=== PATIENT | male | born 1950 | race Caucasian/White ===

== ENCOUNTER 2018-09-07 15:23 | Emergency (ER) | payer OTHER, SELFPAY ==
[2018-09-07 15:43] VITALS: BP 166/80; PULSE 78; RESP 13; TEMP 36.6; O2SAT 99
--- NOTE | 2018-09-07 15:47 | ED.WOUNDLAC ---
HPI - Wound/Laceration <JEY García - Last Filed: 09/08/18 01:00> General Chief Complaint: Wound/Laceration Stated Complaint: laceration to right hand with a band saw Time Seen by Provider: 09/07/18 15:33 Source: patient and family Mode of arrival: ambulatory Limitations: no limitations History of Present Illness HPI narrative: This is a 68-year-old pleasant gentleman, previous smoker, has a history of hypertension and ankylosing spondylitis, presents with the daughter with right hand on the base of 2nd digit with deep laceration. He accidentally sustained this laceration while working on a table saw. His current taking Keflex for the last 7 days QID for another laceration he had it on left hand. Patient reports Right dominant hand, patient denies tingling, numbness, or weakness on affected hand. The patient came in with towel wrapped around the affected side giving direct pressure for bleeding. He denies any other injuries. Tdap was updated on 09/01/18. Related Data Home Medications Medication Instructions Recorded Confirmed hydrochlorothiazide 25 mg PO QDAY #0 08/05/12 09/01/18 adalimumab [Humira] 10 mg SC #0 09/13/15 09/01/18 cyanocobalamin (vitamin B-12) 1,000 mcg PO DAILY 06/02/18 09/01/18 1,000 mcg capsule metoprolol tartrate 50 mg tablet 50 mg PO BID 06/02/18 09/01/18 nabumetone 500 mg tablet 500 mg PO BID 06/02/18 09/01/18 pramipexole 0.5 mg tablet 0.5 mg PO DAILY 06/02/18 09/01/18 Respironics DreamStation BIPAP #1 ea 07/16/18 09/01/18 Previous Rx's Medication Instructions Recorded mupirocin 2 % topical ointment 1 applic TOP BID #22 gram 09/01/18 cephalexin 500 mg PO Q6H 10 Days #40 cap 09/07/18 Allergies Allergy/AdvReac Type Severity Reaction Status Date / Time Sulfa (Sulfonamide Allergy Verified 09/01/18 17:16 Antibiotics) Review of Systems <JEY García - Last Filed: 09/08/18 01:00> Review of Systems General: Denies fever, chills, fatigue, malaise, sweats. HEENT: Denies sinus pain, ear pain, sore throat, difficulty swallowing, dizziness. Respiratory: Denies dyspnea, cough, wheezing, hemoptysis, sputum. Cardiovascular: Denies chest pain, palpitations, orthopnea, edema. Gastrointestinal: Denies nausea, vomiting, abdominal pain, diarrhea, constipation, melena. : Denies dysuria, frequency, incontinence, hematuria, urinary retention. Musculoskeletal: Discomfort on affected laceration site. Denies weakness, joint pain. Skin: See HPI Neurologic: Denies weakness, headache, numbness, change in speech, confusion, seizures, incoordination. Psychiatric: No concerning psychosocial issues. 12-point review of systems is negative except for those stated above. PFSH <JEY García - Last Filed: 09/08/18 01:00> Medical History Atrial fibrillation with controlled ventricular rate (Chronic) Ankylosing spondylitis lumbar region (Chronic) Obstructive sleep apnea of adult (Chronic) Memory difficulties (Chronic) Fatigue due to sleep pattern disturbance (Chronic) Insomnia, unspecified (Chronic) Restless legs syndrome (RLS) (Chronic) Scoliosis of thoracolumbar spine (Chronic) Social History marital status: details: aleksandar Perez, lives in [place] household members: spouse lives independently: Yes caregiver/support person: No Smoking Status: Former smoker alcohol intake: current Social History marital status: details: aleksandar Perez lives in [place] household members: spouse lives independently: Yes caregiver/support person: No Smoking Status: Former smoker alcohol intake: current Exam <JEY García - Last Filed: 09/08/18 01:00> Narrative Exam Narrative: GEN: Alert, oriented x 3, well appearing and nourished, and in no acute distress. Head: Normal cephalic, atraumatic. No scalp or temporal tenderness, palpable mass or rash. EYES: Pupils are equal, round, and reactive to light and accommodation. Extraocular muscles are intact bilaterally. There is no subconjunctival hemorrhage, exudate and sclera non-icteric. Throat: Mucous membrane moist. Neck: Trachea in midline. No JVD, non-tender without lymphadenopathy. No masses or thyroid megaly. Supple, non-tender and meningeal signs. CARDIAC: No peripheral edema, cyanosis or pallor. Capillary refill is less than 2 seconds. RESPIRATORY: No cough, wheezes, rales, or rhonchi. No stridor, respiratory distress, increase work of breathing, or accessary muscle used. ABD: Abdomen non-distended, non-obesed. EXT: Full painless ROM of all extremities with no loss of sensation, strength, effusion or edema. SKIN: 5 cm linear deep laceration to the proximal and base of 2nd digit on R hand with active bleeding. Warm, dry, normal color for patient. No erythema, lesions or rash. NEUROLOGICAL: Alert and oriented to place, time and person. Sensation and motor function intact bilaterally. No facial droops, dysphasia. PSYCHIATRIC: Good judgement and reason, without hallucinations, abnormal affect or abnormal behaviors during the examination. Patient is not suicidal. Initial Vital Signs Initial Vital Signs: Vital Signs Temperature 98 F 09/07/18 15:43 Pulse Rate 78 09/07/18 15:43 Respiratory Rate 13 09/07/18 15:43 Blood Pressure 166/80 H 09/07/18 15:43 Pulse Oximetry 99 09/07/18 15:43 <Sariah Lopez DO - Last Filed: 09/12/18 08:03> Initial Vital Signs Initial Vital Signs: Vital Signs Temperature 98 F 09/07/18 15:43 Pulse Rate 78 09/07/18 15:43 Respiratory Rate 13 09/07/18 15:43 Blood Pressure 166/80 H 09/07/18 15:43 Pulse Oximetry 99 09/07/18 15:43 Procedures <JEY García - Last Filed: 09/08/18 01:00> Laceration Repair R 2nd proximal digit: Site: hand Side (If applicable): right Size (cm): 5 Description: linear Depth: simple, single layer Local Anesthetic: lidocaine 1% and with bicarb Amount of anesthesia used (mL): 6 Pre-repair: wound explored, irrigated extensively and deep structures intact Skin layer closed with: nylon Size (cm): 4-0 Number of sutures: 12 Technique: simple, interrupted Orthopedic Splinting/Casting R 2nd proximal digit: Side: right Upper Extremity Injury Location: finger Upper Extremity Immobilizer: aluminum form splint Post splinting neuro exam: intact Post splinting vascular exam: intact Placed by: Nursing Course <JEY García - Last Filed: 09/08/18 01:00> Orders Ordered: Discontinued Medications Cefazolin Sodium/Dextrose (Ancef) 1 gm in 50 mls @ 200 mls/hr IV NOW ONE Stop: 09/07/18 17:16 Last Infusion: 09/07/18 17:27 Dose: 0 mls/hr Admin: 09/07/18 17:11 Dose: 200 mls/hr Vital Signs - 8 hr 09/07/18 17:46 Pulse Rate 68 Respiratory Rate 15 Blood Pressure [Left Arm] 162/86 H Pulse Oximetry 100 <Sariah Lopez DO - Last Filed: 09/12/18 08:03> Orders Ordered: Discontinued Medications Cefazolin Sodium/Dextrose (Ancef) 1 gm in 50 mls @ 200 mls/hr IV NOW ONE Stop: 09/07/18 17:16 Last Infusion: 09/07/18 17:27 Dose: 0 mls/hr Admin: 09/07/18 17:11 Dose: 200 mls/hr Vital Signs - 8 hr 09/07/18 17:46 Pulse Rate 68 Respiratory Rate 15 Blood Pressure [Left Arm] 162/86 H Pulse Oximetry 100 MDM - Wound/Laceration <JEY García - Last Filed: 09/08/18 01:00> Differential Diagnosis Differential diagnosis: Likely laceration and other (fracture) Medical Records Attestation: I reviewed the patient's medical records. Imaging Data XR-R 2nd finger: Radiologist's impression: [address] [address] XRay Report Signed Patient: Jacoby Lee R#: [id number] : 9Acct:[id number] Age/Sex: 68 / MDate of Service: 09/07/18 Loc: ED Accession Number: [id number] Procedure: XR finger RT min 2V Ordering Provider: William Benites PROCEDURE: XR FINGER RT MIN 2V INDICATIONS: deep laceration on base of finger table saw TECHNIQUE: AP hand, 2 views of the right second finger(s) acquired. COMPARISON: None. FINDINGS: Bones: A minimally displaced fracture is present through the diaphysis of the proximal phalanx of the right second digit. Soft tissues: A soft tissue laceration overlies the proximal phalangeal fracture. IMPRESSION: Laceration/fracture of the proximal phalanx of the right second digit. Dictated by: Manuela Pendleton M.D. on 09/07/2018 at 15:07 Approved by: Manuela Pendleton M.D. on 09/07/2018 at 15:08 [facility] Narrative Medical decision making narrative: This is a 65-year-old pleasant gentleman came in with a deep laceration to his proximal 2nd digit of right hand. He sustained injury using a table saw. He was able to move all his fingers against resistance. X-ray of affected finger was obtained and it indicates a minimally displaced fracture is present through the diaphysis of the proximal phalanx of the right second digit. The patient has soaked his affected hand into water mixed with Hibiclens prior suture repair. The worship was repaired by simple interrupted 12 sutures with nylon 4-0 after locally anesthetized with 1% lidocaine with bicarb. The laceration was irrigated very well with normal saline 0.9% of total 500 mL and with copious pressure. The laceration was restarted bleeding and direct pressure was applied and suture was then placed. The patient tolerated well the procedure. The wound care was done by nursing staff. Patient was given 1 g of Ancef IV secondary to open fracture. Dr. Tiwari was consulted over the phone. Patient is placed on aluminum foam splint as Dr. Tiwari instructed. The patient was prescribed with additional 10 day course of Keflex 500 mg q.i.d. and to follow with the [facility] orthopedist this coming week. We discussed red flag symptoms for infection such as increasing pain/redness/warmth/purulent discharge/fever, chills, chest pain difficulty breathing. Plan of treatments were discussed with the patient and daughter and no further questions were expressed by them. Suture will be removed in 7-10 days unless indicated otherwise by orthopedist. Discharge Plan Departure Patient Disposition: Home Clinical Impression: Open fracture, Laceration Discharge Date/Time: 09/07/18 18:14 Interventions: ED Discharge Assessment Last Done: 09/07/18 18:13 Instructions: DI for Laceration Repair, DI for Open Fracture Activity Restrictions/Additional Instructions: You have been diagnosed with [open fracture to base of R index finger]. What to do: *Take your medications as directed and complete another course of Keflex with this new injury. Your Rx has been faxed to your pharmacy. *Follow up with your primary care provider/Orthopedist in 2-3 days, call for an appointment. Let them know you were seen in the ED and that we asked you to be seen in follow up. P Please keep the wound clean dry and intact for next 24 hours. After then, he could open the dressing, wash with soap and water gently and pat dry with paper towel. Use [id number] antibiotic ointment and dressed with Band-Aid. Please use her splint on affected finger to protect the sutures and fracture. Please do not soak her hand in water until suture has removed. *Return to ED if you have any new, worsening, or concerning symptoms, such as [fever, chills, nausea, vomiting, increasing redness/pain/warmth, pus like discharge or chest pain, breathing difficulty, any concerning symptoms]. Prescriptions: New cephalexin 500 mg capsule 500 mg PO Q6H 10 Days Qty: 40 RF: 0 No Action cyanocobalamin (vitamin B-12) 1,000 mcg capsule 1,000 mcg PO DAILY RF: 0 metoprolol tartrate 50 mg tablet 50 mg PO BID RF: 0 nabumetone 500 mg tablet 500 mg PO BID RF: 0 pramipexole 0.5 mg tablet 0.5 mg PO DAILY RF: 0 mupirocin 2 % ointment 1 applic TOP BID Qty: 22 RF: 0 hydrochlorothiazide 25 MG tablet 25 mg PO QDAY Qty: 0 RF: 0 adalimumab [Humira] 10 MG/0.2 ML syringe kit 10 mg SC Qty: 0 RF: 0 Respironics DreamStation BIPAP Qty: 1 RF: 0 Referrals: [facility] [Outside] Toni Arroyo MD [Primary Care Provider] - <Sariah Lopez DO - Last Filed: 09/12/18 08:03> Cosign ED Attending Madina Attestation: I was immediately available in the department for consultation. Documentation has been reviewed. I agree with assessment and plan.
--- NOTE | 2018-09-07 15:52 | DI.RAD.S_ITS ---
PROCEDURE: XR FINGER RT MIN 2V INDICATIONS: deep laceration on base of finger table saw TECHNIQUE: AP hand, 2 views of the right second finger(s) acquired. COMPARISON: None. FINDINGS: Bones: A minimally displaced fracture is present through the diaphysis of the proximal phalanx of the right second digit. Soft tissues: A soft tissue laceration overlies the proximal phalangeal fracture. IMPRESSION: Laceration/fracture of the proximal phalanx of the right second digit. Dictated by: Manuela Pendleton M.D. on 09/07/2018 at 15:07 Approved by: Manuela Pendleton M.D. on 09/07/2018 at 15:08
[2018-09-07] MEDS: CEFAZOLIN 1 GM/50 ML FROZ.PIGGY IV (17:11)
[2018-09-07 17:46] VITALS: BP 162/86; PULSE 68; RESP 15; O2SAT 100
== END 2018-09-07 18:14 | disposition home or self-care (01) ==
PROVIDERS: Emergency Provider Nurse Practitioner Family; PCP Family Medicine
DX: S62.610B Displaced fracture of proximal phalanx of right index finger, initial encounter for open fracture (principal); W31.2XXA Contact with powered woodworking and forming machines, initial encounter
CPT/HCPCS: 12002; 29130; 73140; 96365; 99284

== ENCOUNTER 2021-04-01 14:30 | Emergency (ER) | payer OTHER, SELFPAY ==
[2021-04-01] VITALS (9 sets, daily range): BP systolic 167–188; BP diastolic 84–122; PULSE 56–63; RESP 14–21; TEMP 36.4; O2SAT 98–100; BMI 24.0
--- NOTE | 2021-04-01 14:52 | DI.RAD.S_ITS ---
PROCEDURE: XR CHEST 1V INDICATIONS: Possible stroke TECHNIQUE: One view of the chest was acquired. COMPARISON: [facility], CT, CT HEAD/BRAIN WO CON, 04/01/2021, 14:56. [facility], CR, XR CHEST 2 VIEWS, 08/05/2019, 14:14. [facility], CR, CHEST 1 VIEW, 09/13/2015, 11:40. [facility], CR, XR CHEST 2 VIEWS, 07/17/2017, 10:20. FINDINGS: Surgical changes and devices: None. Lungs and pleura: Low lung volumes are noted. This causes a crowded appearance to the lung markings and limits evaluation. Mild interstitial prominence can be seen. On this semiupright portable chest examination, no large pneumothorax or large pleural effusions are seen. No focal infiltrates are seen. Mediastinum: Mediastinal contours appear normal. Heart size is normal. Atherosclerotic calcification of the aortic arch is noted. Bones and chest wall: No suspicious bony lesions. Overlying soft tissues appear unremarkable. IMPRESSION: Limited chest study demonstrating low lung volumes. Mild interstitial prominence is seen, which may related to artifact or mild pulmonary edema. If clinically appropriate, a short-term followup chest series (with PA and lateral views) performed in deep inspiration is suggested for further evaluation. Dictated by: Keon Faustin M.D. on 04/01/2021 at 14:14 Approved by: Keon Faustin M.D. on 04/01/2021 at 14:15
--- NOTE | 2021-04-01 14:53 | DI.CT.S_ITS ---
PROCEDURE: CT HEAD/BRAIN WO CON INDICATIONS: double vision, dizzy, falls TECHNIQUE: Noncontrast 4.5 mm thick angled axial sections acquired from the foramen magnum to the vertex, with coronal and sagittal reformats. For radiation dose reduction, the following was used: automated exposure control, adjustment of mA and/or kV according to patient size. COMPARISON: None. FINDINGS: Image quality: Excellent. CSF spaces: Basal cisterns are patent. Prominent CSF density in left posterior fossa is seen which may represent arachnoid cyst. No extra-axial hemorrhage. The ventricles are symmetric in size and shape. Brain: No intracranial bleeds or masses. There is cerebral volume loss for age, with resultant ventricular and sulcal prominence. There are periventricular and deep white matter chronic small vessel ischemic changes. There is intracranial internal carotid artery atherosclerosis. Skull and face: Calvarium and visualized facial bones appear intact, without suspicious lesions. Sinuses: Visualized sinuses and mastoids are clear. IMPRESSION: 1. No CT evidence of acute intracranial abnormalities. 2. Age related atrophy and mild white matter chronic small vessel ischemic changes. 3. Possible arachnoid cyst in left posterior fossa. Dictated by: Shay Jacobs M.D. on 04/01/2021 at 15:08 Approved by: Shay Jacobs M.D. on 04/01/2021 at 15:15
[2021-04-01 15:29] LABS: Add Manual Diff / Slide Review NO; Basophils Absolute Auto 0 /uL (0-100); Basophils Percent Auto 0.6 % (0-2); Eosinophils Absolute Auto 100 /uL (0-450); Eosinophils Percent Auto 2.1 % (2-4); Hematocrit 43.9 % (41-53); Hemoglobin 15.3 g/dL (13.5-17.5); INR 1.1 (0.9-1.3); Lymphocytes Absolute Auto 1200 /uL (1100-4500); Mean Corpuscular HGB Conc 34.9 % (30-36); Mean Corpuscular Hemoglobin 32.4 PG (26-34); Mean Corpuscular Volume 92.7 fL (80-100); Monocytes Absolute Auto 500 /uL (0-900); Monocytes Percent Auto 8.1 % (3-14); Neutrophils Absolute Auto 4200 /uL (1500-7000); Neutrophils Percent Auto 69.2 % (50-75); Platelet Count 189 X10^3/uL (150-400); Prothrombin Time 11.9 SECONDS (10.1-12.7); Red Blood Cell Count 4.73 X10^6/uL (4.5-5.9); Red Cell Distribution Width 12.8 % (11.6-14.8); White Blood Cell Count 6.1 X10^3/uL (4.5-11.0)
[2021-04-01 15:31] LABS: PTT Partial Thromboplastin Tim 61 SECONDS (26.4-36.2)
[2021-04-01 15:33] LABS: Alanine Aminotransferase 27 IU/L (<50); Albumin 4.5 g/dL (3.5-5.0); Albumin Globulin Ratio 1.4 (1.0-2.8); Alkaline Phosphatase 87 U/L (38-126); Aspartate Aminotransferase 39 IU/L (17-59); BUN Creatinine Ratio 27.2 (6-22); Bilirubin Total 0.6 mg/dL (0.2-1.3); Blood Urea Nitrogen 25 mg/dL (9-20); Calcium 9.5 mg/dL (8.4-10.2); Carbon Dioxide 33 mmol/L (22-32); Chloride 104 mmol/L (98-107); Creatine Kinase 60 U/L (55-170); Estimated Glomerular Filt Rate > 60.0 mL/min (>60); Globulin 3.2 g/dL (1.7-4.1); Glucose 96 mg/dL (80-110); HEMOLYSIS 31 (0-50); Potassium 3.9 mmol/L (3.4-5.1); Sodium 141 mmol/L (137-145); Total Protein 7.7 g/dL (6.3-8.2)
[2021-04-01 15:45] LABS: Troponin I < 0.012 ng/mL (0.01-0.034)
[2021-04-01 16:31] LABS: COVID19 -Nasal RAPID Negative (Negative)
--- NOTE | 2021-04-01 17:18 | ED.NEUROSD ---
HPI - Neuro Symptoms/Deficit General Chief Complaint: Neuro Symptoms/Deficit Stated Complaint: Stroke Symtoms, Sent From Eye Dr Time Seen by Provider: 04/01/21 15:48 Source: patient and family Mode of arrival: Ambulatory History of Present Illness HPI Narrative: The patient arrives from Ophthalmology due to a documented visual field cut. The patient is under care for glaucoma, this was a routine visit. He is under the care of neurology for dementia. He has no history of CVA. He did have an episode of double vision about a week ago. He had an episode of dizziness yesterday. Is possible is current medications may be associated dizziness. He has no perceivable visual changes. He has no speech changes. His no focal numbness or weakness. He denies recent illness. He has no palpitations. Medical records indicate a history of PAF. Denies chest discomfort. He ambulates without difficulty. On Anticoagulants: No Related Data Home Medications Medication Instructions Recorded Confirmed hydrochlorothiazide 25 mg tablet 25 mg PO QDAY #0 08/05/12 09/09/20 adalimumab 10 mg/0.2 mL 10 mg SC #0 09/13/15 09/09/20 subcutaneous syringe kit (Humira) cyanocobalamin (vitamin B-12) 1,000 mcg PO DAILY 06/02/18 09/09/20 1,000 mcg capsule pramipexole 0.5 mg tablet 0.5 mg PO DAILY 06/02/18 09/09/20 Respironics DreamStation BIPAP #1 ea 07/16/18 09/09/20 donepezil 5 mg tablet 5 mg PO DAILY 09/09/20 09/09/20 folic acid 0.8 mg capsule 0.8 mg PO DAILY 09/09/20 09/09/20 latanoprost 0.005 % eye drops drp EYE-BOTH 09/09/20 09/09/20 metoprolol tartrate 50 mg tablet 25 mg PO BID tab 09/09/20 09/09/20 sertraline 50 mg tablet 50 mg PO DAILY 09/09/20 09/09/20 vitamin E 1,000 unit capsule 2,000 unit PO DAILY 09/09/20 09/09/20 Allergies Allergy/AdvReac Type Severity Reaction Status Date / Time Sulfa (Sulfonamide Allergy Verified 04/01/21 14:37 Antibiotics) Review of Systems Review of Systems ROS Unobtainable: All systems reviewed & are unremarkable except as noted in HPI and below Constitutional Constitutional: Reports as per HPI, Denies body ache(s), Denies chills, Denies fatigue, Denies fever(s), Denies frequent falls, Denies headache(s) and Denies weakness Eyes Eyes: Denies change in vision and Denies loss of vision Comments: Visual field cut detected by Ophthalmology. ENT Ears, Nose, Mouth, and Throat: Denies vertigo, Reports dizziness, Denies headache(s), Denies sinus pressure and Denies sore throat Cardiovascular Cardiovascular: Denies chest pain, Denies syncope, Denies rapid heart rate, Denies irregular heart rhythm and Denies dyspnea Respiratory Respiratory: Denies cough and Denies dyspnea Gastrointestinal Gastrointestinal: Denies abdominal pain Musculoskeletal Musculoskeletal: Denies arthralgias, Denies back pain, Denies joint swelling, Denies numbness and Denies tingling Integumentary/Breasts Skin/Breast: Denies rash Neurologic Neurologic: Denies confusion, Denies vertigo, Reports dizziness, Denies syncope, Denies frequent falls, Denies headache(s), Denies loss of vision, Reports memory loss, Denies numbness, Denies tingling and Denies weakness Psychiatric Psychiatric: Denies confusion, Denies depression and Reports memory loss Endocrine Endocrine: Denies fatigue Hematologic/Lymphatic On Anticoagulants: No Patient History Medical History (Updated 04/01/21 @ 17:44 by Lamonte Mendoza MD) Ankylosing spondylitis lumbar region Cognitive impairment (~2019) Fatigue due to sleep pattern disturbance Glaucoma Insomnia, unspecified Obstructive sleep apnea of adult Paroxysmal atrial fibrillation Restless legs syndrome (RLS) Social History marital status: details: aleksandar Perez, lives in [place] household members: spouse lives independently: Yes caregiver/support person: No housing: house education level: college (BA, [employer]) Previous occupational history: Taught IA in high schools Smoking Status: Former smoker alcohol intake: current (1 non-alcoholic beer daily) substance use type: does not use Smoking Status: Former smoker Substance Use Type: does not use Exam Initial Vital Signs Initial Vital Signs: Vital Signs Temperature 97.5 F L 04/01/21 14:37 Pulse Rate 57 L 04/01/21 14:37 Respiratory Rate 18 04/01/21 14:37 Blood Pressure 185/85 H 04/01/21 14:37 Pulse Oximetry 99 04/01/21 14:37 Const General: cooperative, comfortable, well developed, well groomed and No acute distress HENOK Head: normocephalic and atraumatic Face and sinus: normal facial exam Mouth: oropharynx normal Eyes Other: Pupils are currently dilated due to the recent ophthalmology exam. EOMI. Neck Neck: No JVD and other (No bruit) Resp Auscultation: clear to auscultation bilaterally Cardio Rate: regular rate Rhythm: regular rhythm Heart Sounds: S1 normal, S2 normal and no murmurs GI Inspection: normal to inspection Palpation: soft and No tender Back/Spine/Pelvis Back: normal to inspection Skin General: no rashes or lesions noted Neuro General: patient alert, patient awake and no focal motor deficits Cranial Nerves: CN's II-XI intact bilaterally Speech: speech normal Gait: normal gait Motor: muscle tone normal throughout Sensory Exam: no sensory deficits noted Coordination: [id number] test normal and Romberg test normal Course Course Course Narrative: No evidence of acute stroke on physical exam, or on CT. I have started him on aspirin. He should continue his other medications. He has already seen a neurologist for his dementia. I advised follow-up with his neurologist. Orders Ordered: ED Orders 04/01/21 14:52 XR chest 1V Stat Urine Drug Screen, Rapid Stat 04/01/21 14:53 CT head/brain wo con Stat 04/01/21 14:57 COVID19 -Nasal swab/Pre-Proc Stat 04/01/21 15:08 EKG-12 Lead Stat 04/01/21 15:10 Complete Blood Count AUTO DIFF Stat Comprehensive Metabolic Panel Stat Partial Thromboplastin Time Stat Prothrombin Time INR Stat Troponin & CK Cardiac Panel Stat Vital Signs Vital signs: Vital Signs - 8 hr 04/01/21 14:37 Temperature 97.5 F L Pulse Rate 57 L Respiratory Rate 18 Blood Pressure 185/85 H Pulse Oximetry 99 MDM - Neuro Symptoms/Deficit Lab Data Result diagrams: 04/01/21 15:10 04/01/21 15:10 Labs: Lab Results 04/01/21 04/01/21 04/01/21 Range/Units 14:57 15:10 15:10 WBC 6.1 (4.5-11.0) X10^3/uL RBC 4.73 (4.5-5.9) X10^6/uL Hgb 15.3 (13.5-17.5) g/dL Hct 43.9 (41-53) % MCV 92.7 (80-100) fL MCH 32.4 (26-34) PG MCHC 34.9 (30-36) % RDW 12.8 (11.6-14.8) % Plt Count 189 (150-400) X10^3/uL Neut % (Auto) 69.2 (50-75) % Lymph % (Auto) 20.0 L (25-40) % [place] % (Auto) 8.1 (3-14) % Eos % (Auto) 2.1 (2-4) % Baso % (Auto) 0.6 (0-2) % Neut # (Auto) 4200 (0865-3808) /uL Lymph # (Auto) 1200 (8303-2874) /uL [place] # (Auto) 500 (0-900) /uL Eos # (Auto) 100 (0-450) /uL Baso # (Auto) 0 (0-100) /uL PT 11.9 (10.1-12.7) SECONDS INR 1.1 (0.9-1.3) APTT 61 H (26.4-36.2) SECONDS Sodium (137-145) mmol/L Potassium (3.4-5.1) mmol/L Chloride (98-107) mmol/L Carbon Dioxide (22-32) mmol/L BUN (9-20) mg/dL Creatinine (0.66-1.25) mg/dL Estimated GFR (>60) mL/min BUN/Creatinine Ratio (6-22) Glucose (80-110) mg/dL Calcium (8.4-10.2) mg/dL Total Bilirubin (0.2-1.3) mg/dL AST (17-59) IU/L ALT (<50) IU/L Alkaline Phosphatase (38-126) U/L Total Creatine Kinase (55-170) U/L CK-MB (CK-2) CK-MB (CK-2) Rel Index Troponin I (0.01-0.034) ng/mL Total Protein (6.3-8.2) g/dL Albumin (3.5-5.0) g/dL Globulin (1.7-4.1) g/dL Albumin/Globulin Ratio (1.0-2.8) SARS-CoV-2 (PCR) Negative (Negative) 04/01/21 Range/Units 15:10 WBC (4.5-11.0) X10^3/uL RBC (4.5-5.9) X10^6/uL Hgb (13.5-17.5) g/dL Hct (41-53) % MCV (80-100) fL MCH (26-34) PG MCHC (30-36) % RDW (11.6-14.8) % Plt Count (150-400) X10^3/uL Neut % (Auto) (50-75) % Lymph % (Auto) (25-40) % [place] % (Auto) (3-14) % Eos % (Auto) (2-4) % Baso % (Auto) (0-2) % Neut # (Auto) (9187-5677) /uL Lymph # (Auto) (3246-1499) /uL [place] # (Auto) (0-900) /uL Eos # (Auto) (0-450) /uL Baso # (Auto) (0-100) /uL PT (10.1-12.7) SECONDS INR (0.9-1.3) APTT (26.4-36.2) SECONDS Sodium 141 (137-145) mmol/L Potassium 3.9 (3.4-5.1) mmol/L Chloride 104 (98-107) mmol/L Carbon Dioxide 33 H (22-32) mmol/L BUN 25 H (9-20) mg/dL Creatinine 0.92 (0.66-1.25) mg/dL Estimated GFR > 60.0 (>60) mL/min BUN/Creatinine Ratio 27.2 H (6-22) Glucose 96 (80-110) mg/dL Calcium 9.5 (8.4-10.2) mg/dL Total Bilirubin 0.6 (0.2-1.3) mg/dL AST 39 (17-59) IU/L ALT 27 (<50) IU/L Alkaline Phosphatase 87 (38-126) U/L Total Creatine Kinase 60 (55-170) U/L CK-MB (CK-2) TNP CK-MB (CK-2) Rel Index TNP Troponin I < 0.012 (0.01-0.034) ng/mL Total Protein 7.7 (6.3-8.2) g/dL Albumin 4.5 (3.5-5.0) g/dL Globulin 3.2 (1.7-4.1) g/dL Albumin/Globulin Ratio 1.4 (1.0-2.8) SARS-CoV-2 (PCR) (Negative) Imaging Data CT scan - head: Radiologist's Impression: 1. No CT evidence of acute intracranial abnormalities.? 2. Age related atrophy and mild white matter chronic small vessel ischemic changes. 3. Possible arachnoid cyst in left posterior fossa. Chest x-ray: Radiologist's Impression: Mild interstitial prominence, no acute findings. ECG Data Attestation: I personally reviewed and interpreted this ECG as follows: (Sinus bradycardia rate 56 beats per minute. Normal intervals. No ectopy. No acute ST T wave changes.) Discharge Plan Departure Prescriptions: No Action cyanocobalamin (vitamin B-12) 1,000 mcg capsule 1,000 mcg PO DAILY 0RF pramipexole 0.5 mg tablet 0.5 mg PO DAILY 0RF metoprolol tartrate 50 mg tablet 25 mg PO BID 0RF hydrochlorothiazide 25 MG tablet 25 mg PO QDAY Qty: 0 0RF adalimumab [Humira] 10 MG/0.2 ML syringe kit 10 mg SC Qty: 0 0RF (DME) Respironics DreamStation BIPAP Qty: 1 0RF Dose Instruction: As directed Label Comments: Pressure: IPAP 20 EPAP 12 DME: [employer] Rx Instructions: As directed folic acid 0.8 mg capsule 0.8 mg PO DAILY 0RF latanoprost 0.005 % drops EYE-BOTH 0RF donepezil 5 mg tablet 5 mg PO DAILY 0RF sertraline 50 mg tablet 50 mg PO DAILY 0RF vitamin E 1,000 unit capsule 2,000 unit PO DAILY 0RF Referrals: Shelly Arroyo MD [Primary Care Provider] -
[2021-04-01] MEDS: ASPIRIN 81 MG CHEW TAB 324 MG PO (17:41)
[2021-04-01 18:10] LABS: UR Morphine/Opiate cutoff 300 Negative (Negative); Ur Creatinine Normal (Normal); Ur Specific Gravity Normal (Normal); Urine Amphetamines Negative (Negative); Urine Barbiturates Negative (Negative); Urine Benzodiazepines Negative (Negative); Urine Cocaine Negative (Negative); Urine MDMA Negative (Negative); Urine Methadone Negative (Negative); Urine Methamphetamines Negative (Negative); Urine Oxycodone Negative (Negative); Urine Phencyclidine Negative (Negative); Urine Tetrahydrocannabinol Negative (Negative); Urine Tricyclic Antidepressant Negative (Negative); Urine pH Normal (Normal)
== END 2021-04-01 17:50 | disposition home or self-care (01) ==
PROVIDERS: Emergency Provider Emergency Medicine; PCP Family Medicine
DX: H53.40 Unspecified visual field defects (principal); H40.9 Unspecified glaucoma; F03.90 Unspecified dementia, unspecified severity, without behavioral disturbance, psychotic disturbance, mood disturbance, and anxiety; R00.1 Bradycardia, unspecified; Z20.822 Contact with and (suspected) exposure to COVID-19
CPT/HCPCS: 36415; 51798; 70450; 71045; 80053; 80305; 81003; 82550; 84484; 85025; 85610; 85730; 87635; 93005; 93010; 99284; C9803

== ENCOUNTER → 2021-04-21 09:39 | Outpatient (CLI) | payer OTHER, SELFPAY ==
--- NOTE | 2021-04-21 09:40 | DI.MRI.S_ITS ---
PROCEDURE: MR HEAD/BRAIN WO CON INDICATIONS: Diplopia TECHNIQUE: Non-contrast axial T1 spin echo, axial T2 fast spin echo, sagittal and axial FLAIR, coronal T2 fast spin echo, axial gradient echo, axial diffusion and ADC through the brain. COMPARISON: [facility], CT, CT HEAD/BRAIN WO CON, 04/01/2021, 14:56. FINDINGS: Image quality: Excellent. CSF spaces: Ventricles appear symmetric in size and shape. Basal cisterns are patent. Left posterior fossa arachnoid cyst is stable compared to prior CT scan. Brain: No intracranial bleeds or mass effects. There is mild cerebral volume loss for age. There are [id number] periventricular and deep white matter chronic small vessel ischemic changes. Brainstem appears normal. Diffusion-weighted images show no acute ischemic insults. No chronic ischemic insults. Normal intravascular flow voids are present. Skull and face: Calvarial bone marrow is normal in signal. Orbits are normal. Sinuses: Sinuses and mastoids are clear. IMPRESSION: 1. No acute intracranial disease process. 2. No areas of acute or chronic infarction. 3. No abnormal intracranial mass or mass effect. 4. Mild, diffuse cerebral volume loss. 5. [id number] periventricular and subcortical white matter chronic microvascular ischemic changes. Dictated by: Padmini Stuart MD, PhD on 04/21/2021 at 10:52 Approved by: Padmini Stuart MD, PhD on 04/21/2021 at 10:55
== END ==
PROVIDERS: PCP Family Medicine; Referring Provider Psychiatry & Neurology Neurology; Visit Provider Psychiatry & Neurology Neurology
DX: H53.2 Diplopia (principal)
CPT/HCPCS: 70551

== ENCOUNTER 2021-12-07 11:53 | Day surgery (SDC) | payer OTHER, SELFPAY ==
[2021-12-07] VITALS (11 sets, daily range): BP systolic 139–215; BP diastolic 71–99; PULSE 54–69; RESP 11–21; TEMP 36.2–37; O2SAT 93–99; BMI 25.1
--- NOTE | 2021-12-07 12:05 | DI.RAD.S_ITS ---
PROCEDURE: XR HAND LT MIN 3V INDICATIONS: saw vs hand amputation index TECHNIQUE: 3 views of the hand(s) acquired. COMPARISON: None. FINDINGS: Bones: Traumatic amputation of the 2nd finger at the proximal phalanx shaft. Traumatic amputation of the thumb at the mid distal phalanx. Suspected minimally displaced fracture of the distal tuft of the 3rd finger. The 4th and 5th fingers are not well seen. Suspected traumatic amputation of the 5th finger at the distal phalanx. Soft tissues: No suspicious soft tissue calcifications. IMPRESSION: Traumatic amputation and injury of multiple fingers as above. Dictated by: Se Younger M.D. on 12/07/2021 at 13:35 Approved by: Se Younger M.D. on 12/07/2021 at 13:40
--- NOTE | 2021-12-07 12:17 | PC.NURSE ---
1205: Pt with deep lacerations on L hand, partial amputation of L thumb and L index finger with deep lacerations through adipose of 3-5th digits. Pt with pulsating bleeding and CAT TQ applied at 1205 which stabilized bleeding to dress rest of hand. Dr Trejo, Ortho aware and will be in dept for assessment. IV obtained and orders to be carried out per APR 1219: TQ removed and bleeding controlled at this time.
[2021-12-07 12:18] LABS: Add Manual Diff / Slide Review NO; Basophils Absolute Auto 100 /uL (0-100); Basophils Percent Auto 0.9 % (0-2); Eosinophils Absolute Auto 100 /uL (0-450); Eosinophils Percent Auto 2.4 % (2-4); Hematocrit 46.7 % (41-53); Hemoglobin 16.4 g/dL (13.5-17.5); Lymphocytes Absolute Auto 1500 /uL (1100-4500); Lymphocytes Percent Auto 24.4 % (25-40); Mean Corpuscular HGB Conc 35.1 % (30-36); Mean Corpuscular Hemoglobin 32.3 PG (26-34); Mean Corpuscular Volume 92.2 fL (80-100); Monocytes Absolute Auto 500 /uL (0-900); Monocytes Percent Auto 8.9 % (3-14); Neutrophils Absolute Auto 3900 /uL (1500-7000); Neutrophils Percent Auto 63.4 % (50-75); Platelet Count 193 X10^3/uL (150-400); Red Blood Cell Count 5.07 X10^6/uL (4.5-5.9); Red Cell Distribution Width 13.5 % (11.6-14.8); White Blood Cell Count 6.1 X10^3/uL (4.5-11.0)
--- NOTE | 2021-12-07 12:20 | PC.NURSE ---
tourniquet removed by dr tran at 1220.
[2021-12-07 12:31] LABS: Alanine Aminotransferase 23 IU/L (<50); Albumin 4.3 g/dL (3.5-5.0); Albumin Globulin Ratio 1.3 (1.0-2.8); Alkaline Phosphatase 86 U/L (38-126); Aspartate Aminotransferase 27 IU/L (17-59); Bilirubin Total 0.7 mg/dL (0.2-1.3); Blood Urea Nitrogen 17 mg/dL (9-20); Calcium 8.8 mg/dL (8.4-10.2); Carbon Dioxide 26 mmol/L (22-32); Chloride 104 mmol/L (98-107); Estimated Glomerular Filt Rate > 60 mL/min (>60); Globulin 3.4 g/dL (1.7-4.1); Glucose 113 mg/dL (80-110); HEMOLYSIS 24 (0-50); Sodium 140 mmol/L (137-145); Total Protein 7.7 g/dL (6.3-8.2)
[2021-12-07] MEDS: CEFAZOLIN VIAL 1 GM in SODIUM CHLORIDE 0.9% 100 ML IV (12:31)
[2021-12-07] MEDS: TET,DIPH,PERTUSS(ACELL),VAC/PF 0.5 ML SYRINGE IM (12:32)
[2021-12-07] MEDS: HYDROMORPHONE 0.5 MG INJ IV ×2 (12:32→15:25)
[2021-12-07 12:38] LABS: COVID19 -Nasal RAPID Negative (Negative)
--- NOTE | 2021-12-07 13:56 | ED_ITS ---
"HPI - Extremity Injury (Upper) General Chief Complaint: Trauma Stated Complaint: Cut self on saw Time Seen by Provider: 12/07/21 12:05 Source: patient Mode of arrival: Ambulatory History of Present Illness HPI narrative: Patient is a 71-year-old male with mild dementia presenting today with left hand injury. He was using a table saw he amputated his left index finger he has multiple lacerations on the thumb and pinky as. No blood thinners. No other injury. He is right-hand dominant. Related Data Home Medications Medication Instructions Recorded Confirmed hydrochlorothiazide 25 mg tablet 25 mg PO QDAY ##0 08/05/12 12/07/21 adalimumab 10 mg/0.2 mL 10 mg SC ##0 09/13/15 06/06/21 subcutaneous syringe kit ([employer]) cyanocobalamin (vitamin B-12) 1,000 mcg PO DAILY 06/02/18 12/07/21 1,000 mcg capsule donepezil 5 mg tablet 5 mg PO DAILY 09/09/20 12/07/21 folic acid 0.8 mg capsule 0.8 mg PO DAILY 09/09/20 12/07/21 latanoprost 0.005 % eye drops drp EYE-BOTH 09/09/20 06/06/21 metoprolol tartrate 50 mg tablet 25 mg PO BID 09/09/20 12/07/21 sertraline 50 mg tablet 50 mg PO DAILY 09/09/20 12/07/21 vitamin E 670 mg (1,000 unit) 2,000 unit PO DAILY 09/09/20 12/07/21 capsule memantine 5 mg tablet 5 mg PO BID 06/06/21 12/07/21 ropinirole 0.5 mg tablet 0.5 mg PO BEDTIME 06/06/21 12/07/21 ResMed AirCurve 1012/06/21 Previous Rx's Medication Instructions Recorded cephalexin 500 mg capsule 500 mg PO Q8H #30 caps 12/07/21 cephalexin 500 mg capsule 500 mg PO TID #30 caps 12/07/21 oxycodone 5 mg tablet 5 mg PO Q6H PRN pain #40 tabs 12/07/21 oxycodone 5 mg tablet 5 mg PO Q6H PRN pain (scale score 12/07/21 7-10) #40 tabs Allergies Allergy/AdvReac Type Severity Reaction Status Date / Time Sulfa (Sulfonamide Allergy Verified 12/07/21 16:21 Antibiotics) Review of Systems Review of Systems Narrative: GENERAL: Denies chills,fever HEENT: Denies throat pain RESPIRATORY: Denies dyspnea, cough, wheezing CARDIOVASCULAR: Denies chest pain, palpitations GASTROINTESTINAL: Denies nausea, vomiting MUSCULOSKELETAL: Denies extremity pain, injury SKIN: See HPI NEUROLOGIC: Denies weakness, dizziness, headache, numbness 8 point review of systems is negative except for those stated above and HPI Patient History Medical History Ankylosing spondylitis lumbar region Cognitive impairment (~2019) Fatigue due to sleep pattern disturbance Glaucoma Insomnia, unspecified Obstructive sleep apnea of adult Paroxysmal atrial fibrillation Restless legs syndrome (RLS) Social History marital status: details: aleksandar Perez, lives in [place] household members: spouse lives independently: Yes caregiver/support person: No housing: house education level: college (BA, [employer]) 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 Smoking Status: Former smoker alcohol intake: current substance use type: does not use Smoking Status: Former smoker Substance Use Type: does not use Exam Initial Vital Signs Initial Vital Signs: Vital Signs Temperature 98.6 F 12/07/21 12:05 Pulse Rate 54 L 12/07/21 12:05 Respiratory Rate 16 12/07/21 12:05 Blood Pressure 215/97 H 12/07/21 12:05 Pulse Oximetry 99 12/07/21 12:05 Oxygen Delivery Method 12/07/21 12:05 GENERAL: Alert pleasant 71-year-old male CARDIOVASCULAR: peripheral pulses in tact, cap refill <2 sec RESPIRATORY: No respiratory distress, speaks in full sentences without difficulty EXTREMITIES: Normal range of motion, no clubbing or edema. Neurovascularly intact NEUROLOGICAL: Cranial nerves II through XII grossly intact. Normal gait and speech. SKIN: Left hand amputation of index finger at the MCP, laceration and some pad and laceration of the pinky. He has a good distal radial pulse. There is sensation at the distal tips. Difficulty with range of motion in all fingers due to pain and bleeding. Course Orders Ordered: Discontinued Medications Hydrocodone Bitart/Acetaminophen (Hydrocodone/Acet 5/325 Tablet) 1 tab PO PACUNOW PRN PRN Reason: Mild or moderate pain Bupivacaine HCl (Bupivacaine 0.5% (Pf) Vial) 5 ml SUBCUT NOW ONE Stop: 12/07/21 17:51 Last Admin: 12/07/21 18:42 Dose: 20 ml Documented By: PAMELA Diphtheria/Tetanus/Acell Pertussis (Tet,Diph,Pertuss(Acell),Vac/Pf 0.5 Ml Syringe) 0.5 ml IM .ONCE ONE Stop: 12/07/21 12:06 Last Admin: 12/07/21 12:32 Dose: 0.5 ml Documented By: REMINGTON Fentanyl (Fentanyl 100 Mcg/2 Ml Inj) 0 mcg IV Q5M PRN PRN Reason: Pain, Moderate (4-6) Hydromorphone HCl (Hydromorphone 0.5 Mg Inj) 0.5 mg IV NOW ONE Stop: 12/07/21 12:06 Last Admin: 12/07/21 12:32 Dose: 0.5 mg Documented By: REMINGTON Hydromorphone HCl (Hydromorphone 0.5 Mg Inj) 0.5 mg IV NOW ONE Stop: 12/07/21 15:21 Last Admin: 12/07/21 15:25 Dose: 0.5 mg Documented By: MANUEL Hydromorphone HCl (Hydromorphone 2 Mg Inj) 0 mg IV Q5M PRN PRN Reason: Pain, Moderate (4-6) Cefazolin Sodium 1 gm/ Sodium (Chloride) 100 mls @ 200 mls/hr IV NOW ONE Stop: 12/07/21 12:35 Last Infusion: 12/07/21 13:12 Dose: 0 mls/hr Documented By: Admin: 12/07/21 12:31 Dose: 200 mls/hr Documented By: REMINGTON Lactated Ringer's (Lactated Ringers) 1,000 mls @ 42 mls/hr IV NOW ONE Stop: 12/08/21 16:11 Last Admin: 12/07/21 16:25 Dose: 42 mls/hr Documented By: WADE Cefazolin Sodium/Dextrose (Ancef) 100 mls @ 200 mls/hr IV NOW ONE Stop: 12/07/21 18:17 Last Infusion: 12/07/21 17:55 Dose: 0 mls/hr Documented By: Admin: 12/07/21 17:45 Dose: 200 mls/hr Documented By: AB Vital Signs Vital signs: Vital Signs - 8 hr 12/07/21 12:05 12/07/21 13:07 12/07/21 13:09 Temperature 98.6 F Pulse Rate 54 L 61 Respiratory Rate 16 Blood Pressure 215/97 H 139/71 Pulse Oximetry 99 96 Oxygen Delivery Method Room Air 12/07/21 13:09 12/07/21 13:15 12/07/21 13:30 Temperature Pulse Rate 59 L 60 Respiratory Rate Blood Pressure 146/73 H Pulse Oximetry 93 95 Oxygen Delivery Method 12/07/21 13:30 Temperature Pulse Rate 57 L Respiratory Rate 17 Blood Pressure Pulse Oximetry 94 Oxygen Delivery Method Room Air MDM - Extremity Injury (Upper) Lab Data Result diagrams: 12/07/21 12:09 12/07/21 12:09 Labs: Lab Results 12/07/21 12/07/21 12/07/21 Range/Units 12:09 12:09 12:10 WBC 6.1 (4.5-11.0) X10^3/uL RBC 5.07 (4.5-5.9) X10^6/uL Hgb 16.4 (13.5-17.5) g/dL Hct 46.7 (41-53) % MCV 92.2 (80-100) fL MCH 32.3 (26-34) PG MCHC 35.1 (30-36) % RDW 13.5 (11.6-14.8) % Plt Count 193 (150-400) X10^3/uL Neut % (Auto) 63.4 (50-75) % Lymph % (Auto) 24.4 L (25-40) % [place] % (Auto) 8.9 (3-14) % Eos % (Auto) 2.4 (2-4) % Baso % (Auto) 0.9 (0-2) % Neut # (Auto) 3900 (6187-1629) /uL Lymph # (Auto) 1500 (7021-2193) /uL [place] # (Auto) 500 (0-900) /uL Eos # (Auto) 100 (0-450) /uL Baso # (Auto) 100 (0-100) /uL Sodium 140 (137-145) mmol/L Potassium 4.0 (3.4-5.1) mmol/L Chloride 104 (98-107) mmol/L Carbon Dioxide 26 (22-32) mmol/L BUN 17 (9-20) mg/dL Creatinine 0.81 (0.66-1.25) mg/dL Estimated GFR > 60 (>60) mL/min BUN/Creatinine Ratio 21.0 (6-22) Glucose 113 H (80-110) mg/dL Calcium 8.8 (8.4-10.2) mg/dL Total Bilirubin 0.7 (0.2-1.3) mg/dL AST 27 (17-59) IU/L ALT 23 (<50) IU/L Alkaline Phosphatase 86 (38-126) U/L Total Protein 7.7 (6.3-8.2) g/dL Albumin 4.3 (3.5-5.0) g/dL Globulin 3.4 (1.7-4.1) g/dL Albumin/Globulin Ratio 1.3 (1.0-2.8) SARS-CoV-2 (PCR) Negative (Negative) MDM Narrative Medical decision making narrative: Bleeding control was initially obtained with a tourniquet was placed at 12:04 p.m. removed by myself at 12:20 p.m.. His bandages and Coban replaced. IV and Ancef given along with tetanus. Immediately Orthopedics Dr. Ching Trejo was called shortly thereafter she was at bedside to examine patient. Plan is for patient to go to OR later. His pain is controlled with Dilaudid. Discharge Plan Departure Patient Disposition: Home Clinical Impression: Amputation of index finger, Laceration of thumb Instructions: DI for Trauma, DI for Finger Extensor Tendon Injury, DI for Finger Flexor Tendon Injury Prescriptions: New cephalexin 500 mg capsule 500 mg PO Q8H Qty: 30 0RF oxycodone 5 mg tablet 5 mg PO Q6H PRN (Reason: pain (scale score 7-10)) Qty: 40 0RF cephalexin 500 mg capsule 500 mg PO TID Qty: 30 0RF oxycodone 5 mg tablet 5 mg PO Q6H PRN (Reason: pain) Qty: 40 0RF No Action cyanocobalamin (vitamin B-12) 1,000 mcg capsule 1,000 mcg PO DAILY metoprolol tartrate 50 mg tablet 25 mg PO BID hydrochlorothiazide 25 MG tablet 25 mg PO QDAY Qty: 0 Humira 10 MG/0.2 ML syringe kit 10 mg SC Qty: 0 folic acid 0.8 mg capsule 0.8 mg PO DAILY latanoprost 0.005 % drops EYE-BOTH donepezil 5 mg tablet 5 mg PO DAILY sertraline 50 mg tablet 50 mg PO DAILY vitamin E 1,000 unit capsule 2,000 unit PO DAILY memantine 5 mg tablet 5 mg PO BID ropinirole 0.5 mg tablet 0.5 mg PO BEDTIME Rx Instructions: take 3 tablet by mouth every evening, administer 1-3 hours before bedtime (DME) ResMed AirCurve 10ST 0 .Route .MEDSUPPLY Label Comments: BIPAP IPAP: 19 EPAP: 14 RR: 7 DME: [facility] JIMBO: 01/31/21 Referrals: Shelly Arroyo MD [Primary Care Provider] - Ami Trejo MD [Physician] - Stand Alone Forms: Surgery Discharge Visit Report Forms: Patient Portal/API"
--- NOTE | 2021-12-07 14:11 | PC.NURSE ---
assessed patient dressing for bleeding. redressed. small amount of blood on dressing. pt tolerated procedure well
[2021-12-07] MEDS: LACTATED RINGERS 1,000 ML 42 ML IV (16:25)
--- NOTE | 2021-12-07 16:48 | PM.HP.1 ---
History of Present Illness History of Present Illness Date Patient Seen: 12/07/21 Time Patient Seen: 16:55 Date of Onset of Symptoms: 12/07/21 Chief complaint: Cut self on saw Narrative: This is a 71-year-old gentleman who has mild dementia he was feeding a something into his table saw today when he accidentally caught his left hand. He noted the acute onset of left hand pain and deformity. He was transported emergently to the emergency room. He had active bleeding at the time. He is right-hand dominant. He does have some baseline dementia. He is accompanied at bedside by his today. He normally enjoys doing would work which is his main hobby. Patient History Medical History Ankylosing spondylitis lumbar region Cognitive impairment (~2019) Fatigue due to sleep pattern disturbance Glaucoma Insomnia, unspecified Obstructive sleep apnea of adult Paroxysmal atrial fibrillation Restless legs syndrome (RLS) Family & Social History Social History: household members spouse lives independently Yes caregiver/support person No Safety & Behavioral: Feels Safe in Current Yes Environment Been Physically Hurt or No Threatened By a Person Tobacco & Substance use: Smoking Status Former smoker alcohol intake current Substance Use Type does not use Meds Home Medications and Allergies Home Medications Medication Instructions Recorded Confirmed Type hydrochlorothiazide 25 mg tablet 25 mg PO QDAY ##0 08/05/12 12/07/21 History adalimumab 10 mg/0.2 mL 10 mg SC ##0 09/13/15 06/06/21 History subcutaneous syringe kit (Humira) cyanocobalamin (vitamin B-12) 1,000 mcg PO DAILY 06/02/18 12/07/21 History 1,000 mcg capsule donepezil 5 mg tablet 5 mg PO DAILY 09/09/20 12/07/21 History folic acid 0.8 mg capsule 0.8 mg PO DAILY 09/09/20 12/07/21 History latanoprost 0.005 % eye drops drp EYE-BOTH 09/09/20 06/06/21 History metoprolol tartrate 50 mg tablet 25 mg PO BID 09/09/20 12/07/21 History sertraline 50 mg tablet 50 mg PO DAILY 09/09/20 12/07/21 History vitamin E 670 mg (1,000 unit) 2,000 unit PO DAILY 09/09/20 12/07/21 History capsule memantine 5 mg tablet 5 mg PO BID 06/06/21 12/07/21 History ropinirole 0.5 mg tablet 0.5 mg PO BEDTIME 06/06/21 12/07/21 History ResMed AirCurve 12/06/21 History Allergies Allergy/AdvReac Type Severity Reaction Status Date / Time Sulfa (Sulfonamide Allergy Verified 12/07/21 16:21 Antibiotics) Review of Systems Review of Systems Narrative: No recent fever chills, continued baseline dementia, he has otherwise been relatively healthy. Exam Vital Signs (past 8 hours): - 12/07/21 12:05 12/07/21 13:07 12/07/21 13:09 Temperature 98.6 F Pulse Rate 54 L 61 Respiratory Rate 16 Blood Pressure 215/97 H 139/71 Pulse Oximetry 99 96 Oxygen Delivery Method Room Air 12/07/21 13:09 12/07/21 13:15 12/07/21 13:30 Temperature Pulse Rate 59 L 60 Respiratory Rate Blood Pressure 146/73 H Pulse Oximetry 93 95 Oxygen Delivery Method 12/07/21 13:30 12/07/21 13:45 12/07/21 14:00 Temperature Pulse Rate 57 L 62 Respiratory Rate 17 Blood Pressure 168/85 H Pulse Oximetry 94 96 Oxygen Delivery Method Room Air 12/07/21 14:00 12/07/21 16:36 Temperature 98.2 F Pulse Rate 61 68 Respiratory Rate 12 Blood Pressure 166/82 H Pulse Oximetry 96 98 Oxygen Delivery Method Room Air Oxygen Delivery Method Room Air Narrative Exam Narrative: HEENT is benign he is resting comfortably in bed. S lungs are clear, cor regular rate and rhythm, neck is supple, there is some deformity of his spine, his left upper extremity is remarkable for an amputation of his index finger through the proximal phalanx near the MP joint, has complex amputation of his a pad of his thumb with significant shortening and substantial soft tissue loss along the thumb, he also laceration which are complicated on the volar aspect of middle ring and small finger, he had a tourniquet on when I saw him initially in the emergency room in order to control the bleeding. That was stopped and the bleeding was controlled with compression, there does appear to be vascularity to the distal tips of his remaining fingers, he has restricted range of motion and has difficulty with active flexion and extension, abdomen soft and benign, Objective Labs Result Diagrams: 12/07/21 12:09 12/07/21 12:09 Labs: Laboratory Results - last 24 hr 12/07/21 12/07/21 12/07/21 12:09 12:09 12:10 WBC 6.1 RBC 5.07 Hgb 16.4 Hct 46.7 MCV 92.2 MCH 32.3 MCHC 35.1 RDW 13.5 Plt Count 193 Neut % (Auto) 63.4 Lymph % (Auto) 24.4 L [place] % (Auto) 8.9 Eos % (Auto) 2.4 Baso % (Auto) 0.9 Neut # (Auto) 3900 Lymph # (Auto) 1500 [place] # (Auto) 500 Eos # (Auto) 100 Baso # (Auto) 100 Sodium 140 Potassium 4.0 Chloride 104 Carbon Dioxide 26 BUN 17 Creatinine 0.81 Estimated GFR > 60 BUN/Creatinine Ratio 21.0 Glucose 113 H Calcium 8.8 Total Bilirubin 0.7 AST 27 ALT 23 Alkaline Phosphatase 86 Total Protein 7.7 Albumin 4.3 Globulin 3.4 Albumin/Globulin Ratio 1.3 SARS-CoV-2 (PCR) Negative X-rays show amputation of the left index finger, significant soft tissue loss and bony loss from the distal phalanx of the thumb, deformity of the small finger with subluxation of PIP joint, significant soft tissue loss multiple fingers Assessment & Plan Assessment and plan (1) Amputation of index finger: Status: Acute (2) Laceration of thumb: Status: Acute Assessment & Plan narrative: Has a complex all wound to his left hand. There is evidence of amputation of his index finger. There was partial amputation his thumb and complicated lacerations including soft tissue loss and tendon lacerations to middle ring and small finger. There is no active bleeding at this point. I asked him to discontinue his tourniquet. I have recommended emergent irrigation and debridement with a plan for completion amputation and closure of the index finger, probable completion amputation and shortening of the thumb repair is ring small finger. He is a complicated patient has a has a history of dementia. I think he will have difficulty with substantial hand re hab. He clearly is not a candidate for reimplantation of his index finger. He is right-hand dominant. I told him and his family that I will do everything I can to save the remaining digits to the best my ability and get adequate closure. Time Spent With Patient Critical Care time: I spent a total of [] minutes of critical care time on this patient's care today; this time is exclusive of procedural time.
[2021-12-07] MEDS: CEFAZOLIN 2 GM/100 ML PREMIX 100 ML IV (17:45)
--- NOTE | 2021-12-07 18:00 | SUR.OPER ---
80mg/2ml Gentamicin added to 1000ml NACL on back table for irrigation.
--- NOTE | 2021-12-07 18:02 | SUR.OPER ---
Supine on padded OR bed, head on pillow, right arm secured on padded arm board at <90 degrees abduction, left arm positioned on hand table, legs uncrossed, safety belt across abdomen thigh.
[2021-12-07] MEDS: BUPIVACAINE 0.5% (PF) VIAL 5 ML SUBCUT (18:42)
--- NOTE | 2021-12-07 18:45 | PM.OP.1 ---
Operative Date/Time/Diagnoses Date of procedure: 12/07/21 Time of procedure: 17:30 Pre-op diagnosis: Left hand saw wound with amputation of the index finger multiple finger injuries and partial thumb amputation, middle finger flexor tendon injury, ring finger X wound, small finger extensor tendon injury Post-op diagnosis: same Procedure & Clinicians Procedure: 1. completion amputation and closure left thumb, 2. Completion amputation and closure left index finger 3. Left middle finger repair of complex laceration and repair of flexor tendon zone 2, 4. Left small finger repair of extensor tendon. 5. Left small finger irrigation and debridement open left DIP joint. 6. repair left ring finger laceration Same procedure as scheduled: Yes Indications: This is a 71-year-old gentleman with some component of dementia who got his left hand caught in a table saw when he was would working. Sustained a severe injury with an amputation of his index finger and amputation of his volar aspect and the distal tip of his thumb and a laceration of the flexor tendon of his middle finger and laceration of the both the ring and small finger with an open left small finger D IP joint and extensor tendon Surgeon: Ami Trejo Recovery Operator: Sallie Donahue Anesthesia Type: General Operative Notes Findings: Traumatic amputation of the index finger, closed without tension, partial amputation of distal tip of the thumb, adequate soft tissue coverage for closing the thumb, nail removed, nail bed base not destroyed due to need for vascularity, zone 2 laceration of the middle finger flexor tendon with a complex multilevel injury to the middle finger, complex laceration ring finger, no deep trauma, left small finger PIP joint injury with an extensor tendon laceration and an open joint, adequate repair of the extensor tendon small finger pinned in extension Closure Type: primary Specimen(s): none sent Prosthetic devices, grafts, tissues, transplants, or devices: one 0.54 mm pin Estimated Blood Loss (mL): 100 Blood products transfused: none Procedure in detail: Patient was brought to the operating room. A time-out was performed after giving the patient IV antibiotics. Left upper extremity was prepped and draped in standard sterile fashion. High arm tourniquet was applied. I attempted to minimize the amount of tourniquet time because of the severe trauma to his hand. Patient had a traumatic amputation of his index finger distal to the MP joint. The wound was meticulously irrigated with normal saline. There was reasonable soft tissue for soft tissue coverage. The neurovascular bundles were shortened slightly. The wound was meticulously irrigated with normal saline and the a completion amputation was closed with interrupted nylon. Attention was then directed to the thumb. Had a partial amputation of his thumb. The vast majority of the pulp and subcutaneous tissues were removed. The level of the amputation patient. I felt that this would provide good coverage. The nail was carefully removed. I considered destroying the nail base but I felt that it was important to maintain as much vascularity to the flap in order to provide as much coverage as possible for the thumb and to maintain as much length as possible. The wound was meticulously irrigated. Some fragments of bone were removed. Neurovascular bundles were shortened and the wound was closed and the amputation stump was closed with interrupted nylon. Attention was then directed to the ring finger. The ring finger had a complex laceration. It was several cm. It was carefully repaired with interrupted nylon. Attention was then directed to the small finger. There was a laceration on the dorsum of the small finger with an open IP joint and a complete laceration of the extensor tendon at the level of the distal phalanx and the IP joint. The tendon was repaired with interrupted Tycron. I did place a pin in the small finger in order to stabilize the IP joint and protect the repair. The other injuries were on the flexor surface and I wanted to keep terminal extension of the ID IP joint of the small finger and protect the repair. The pin was cut and bent. The wound was closed with interrupted nylon. Attention was then directed to the middle finger the middle finger had a multilevel saw wound with a complete laceration of the flexor digitorum profundus and flexor superficialis at the level of the proximal phalanx or zone 2. There was also a secondary laceration from the saw more distal to that on the volar aspect closer to the level of the D IP joint. The wounds were meticulously irrigated. The flexor digital superficialis both slips were repaired the tendon was present and had trauma but was not severe and it appeared repairable. There was a multiple level laceration of the flexor digitorum profundus. There was severe injury to the tendon with a segmental injury and it was not felt that it was a repairable injury for that tendon. The wound was meticulously irrigated with normal saline. The finger was kept in a flexed position. Skin was closed with interrupted nylon. Dense digital block was performed in all the fingers and in the thumb. The wound was dressed sterilely with Xeroform and a bulky dressing with coverage of the hand. As it was multiple finger tip injuries it was not felt that we needed to see the distal tip of the fingers and as he has dementia we made an attempt to provide adequate protection for his hand. He tolerated the procedure well was transferred to the recovery room in the satisfactory condition. Complications: none Post-operative Condition: stable Disposition: Acute Care Plan for aftercare: Keep arm protected with splint or cast, suture removal at 10 to 14 days post injury. Follow-up in 10 days.
== END 2021-12-08 03:06 | disposition home or self-care (01) ==
LOC: ED 18:45 → OR 12-16 14:26
PROVIDERS: Emergency Provider Emergency Medicine; PCP Family Medicine; Visit Provider Orthopaedic Surgery
PROC: (CPT 26356; principal; 2021-12-07 16:30)
DX: S68.111A Complete traumatic metacarpophalangeal amputation of left index finger, initial encounter (principal); S61.012A Laceration without foreign body of left thumb without damage to nail, initial encounter; W29.3XXA Contact with powered garden and outdoor hand tools and machinery, initial encounter; F03.90 Unspecified dementia, unspecified severity, without behavioral disturbance, psychotic disturbance, mood disturbance, and anxiety; G47.31 Primary central sleep apnea; Z23 Encounter for immunization; Z20.822 Contact with and (suspected) exposure to COVID-19
CPT/HCPCS: 26356; 26951; 26236; 26418; 13131; 29125; 36415; 73130; 80053; 85025; 87635; 90471; 96365; 96375; 96376; 99283; 99284; C9803; 90715; J0690; J1170; J2704; J3010

== ENCOUNTER 2021-12-07 20:09 | Emergency (ER) | payer OTHER, SELFPAY ==
[2021-12-07 20:10] VITALS: BP 194/96; PULSE 76; RESP 16; TEMP 36.6; O2SAT 97; BMI 25.7
--- NOTE | 2021-12-07 20:47 | ED_ITS ---
HPI - Recheck/Abnormal Lab/Rx General Chief Complaint: Recheck/Abnormal Lab/Rx Stated Complaint: left arm, tore off bandages s/p surgery Time Seen by Provider: 12/07/21 20:47 History of Present Illness HPI narrative: Patient here because he removed dressing from his left hand. Had surgery today for amputations of the fingers. No new injuries Related Data Home Medications Medication Instructions Recorded Confirmed hydrochlorothiazide 25 mg tablet 25 mg PO QDAY ##0 08/05/12 12/07/21 adalimumab 10 mg/0.2 mL 10 mg SC ##0 09/13/15 06/06/21 subcutaneous syringe kit (Humira) cyanocobalamin (vitamin B-12) 1,000 mcg PO DAILY 06/02/18 12/07/21 1,000 mcg capsule donepezil 5 mg tablet 5 mg PO DAILY 09/09/20 12/07/21 folic acid 0.8 mg capsule 0.8 mg PO DAILY 09/09/20 12/07/21 latanoprost 0.005 % eye drops drp EYE-BOTH 09/09/20 06/06/21 metoprolol tartrate 50 mg tablet 25 mg PO BID 09/09/20 12/07/21 sertraline 50 mg tablet 50 mg PO DAILY 09/09/20 12/07/21 vitamin E 670 mg (1,000 unit) 2,000 unit PO DAILY 09/09/20 12/07/21 capsule memantine 5 mg tablet 5 mg PO BID 06/06/21 12/07/21 ropinirole 0.5 mg tablet 0.5 mg PO BEDTIME 06/06/21 12/07/21 ResMed AirCurve 1012/06/21 Previous Rx's Medication Instructions Recorded cephalexin 500 mg capsule 500 mg PO Q8H #30 caps 12/07/21 cephalexin 500 mg capsule 500 mg PO TID #30 caps 12/07/21 oxycodone 5 mg tablet 5 mg PO Q6H PRN pain #40 tabs 12/07/21 oxycodone 5 mg tablet 5 mg PO Q6H PRN pain (scale score 12/07/21 7-10) #40 tabs Allergies Allergy/AdvReac Type Severity Reaction Status Date / Time Sulfa (Sulfonamide Allergy Verified 12/07/21 16:21 Antibiotics) Review of Systems Review of Systems Narrative: GENERAL: Denies chills, fatigue, malaise, fever, sweats. MUSCULOSKELETAL: denies muscle or bony pain SKIN: Denies rash, skin lesions, positive skin wound ROS Unobtainable: All systems reviewed & are unremarkable except as noted in HPI and below Patient History Medical History Ankylosing spondylitis lumbar region Cognitive impairment (~2019) Fatigue due to sleep pattern disturbance Glaucoma Insomnia, unspecified Obstructive sleep apnea of adult Paroxysmal atrial fibrillation Restless legs syndrome (RLS) Social History marital status: details: aleksandar Perez, lives in [place] household members: spouse lives independently: Yes caregiver/support person: No housing: house education level: college (BA, [employer]) 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 EYES: Pupils equal round No scleral icterus. EXTREMITIES: Examination left hand. There is a stump with stitches intact left thumb. Index finger sutures are intact. Sutures intact with middle finger. No injuries to the ring finger. Stitches intact to the pinky finger. Fingers are clean, no swelling or dirt. No bleeding or oozing. No bone exposure seen. No discharge. No oozing, no foul odor NEURO: Patient states name. SKIN: Warm and dry PSYCH: Not anxious, is cooperative Initial Vital Signs Initial Vital Signs: Vital Signs Temperature 97.9 F 12/07/21 20:10 Pulse Rate 76 12/07/21 20:10 Respiratory Rate 16 12/07/21 20:10 Blood Pressure 194/96 H 12/07/21 20:10 Pulse Oximetry 97 12/07/21 20:10 Oxygen Delivery Method 12/07/21 20:10 Course Course Course Narrative: No new issues during course of stay Orders Ordered: Discontinued Medications Cephalexin HCl (Cephalexin 250 Mg Capsule) 500 mg PO NOW ONE Stop: 12/07/21 20:49 Last Admin: 12/07/21 21:07 Dose: 500 mg Documented By: MLM Reevaluation(s) Reevaluation #1: Spoke with family at bedside. Wounds are clean. Does not appear to be dehisced. I did speak with orthopedist. No new management. Time: 20:55 Consultations Consultation #1: Spoke with Dr. Trejo, orthopedist that operated on patient today. At this time sutures are likely intact. Even if not in tact, she desires patient's be bundle wrapped fingers, dose of oral Keflex and reapply splint. Continue discharge instructions from surgery. Wound areas are clean Time: 20:49 MDM - Recheck/Abnormal Lab/Rx Differential Diagnosis Differential diagnosis: Likely other (Dressing change) MDM Narrative Medical decision making narrative: Appropriate for discharge home. No blood work or imaging indicated. Oral antibiotics appropriate. Surgical wound sites are clean and intact. No bleeding. No researching indicated. I did speak with Orthopedics findings in may be discharged home with oral antibiotic. Return precautions reviewed with family Discharge Plan Departure Patient Disposition: Home Clinical Impression: Change or removal of surgical wound dressing Instructions: How to Care for a Surgical Wound Activity Restrictions/Additional Instructions: Please continue surgical wound care instructions by Dr. Trejo from earlier today. Please continue home medications. Please continue antibiotics she presc ribed to you. Return if worse if any questions or concerns. Please see Dr. Trejo as she schedule you for Prescriptions: No Action cyanocobalamin (vitamin B-12) 1,000 mcg capsule 1,000 mcg PO DAILY metoprolol tartrate 50 mg tablet 25 mg PO BID hydrochlorothiazide 25 MG tablet 25 mg PO QDAY Qty: 0 Humira 10 MG/0.2 ML syringe kit 10 mg SC Qty: 0 cephalexin 500 mg capsule 500 mg PO Q8H Qty: 30 0RF oxycodone 5 mg tablet 5 mg PO Q6H PRN (Reason: pain (scale score 7-10)) Qty: 40 0RF cephalexin 500 mg capsule 500 mg PO TID Qty: 30 0RF oxycodone 5 mg tablet 5 mg PO Q6H PRN (Reason: pain) Qty: 40 0RF folic acid 0.8 mg capsule 0.8 mg PO DAILY latanoprost 0.005 % drops EYE-BOTH donepezil 5 mg tablet 5 mg PO DAILY sertraline 50 mg tablet 50 mg PO DAILY vitamin E 1,000 unit capsule 2,000 unit PO DAILY memantine 5 mg tablet 5 mg PO BID ropinirole 0.5 mg tablet 0.5 mg PO BEDTIME Rx Instructions: take 3 tablet by mouth every evening, administer 1-3 hours before bedtime (DME) ResMed AirCurve 10ST 0 .Route .MEDSUPPLY Label Comments: [facility] IPAP: 19 EPAP: 14 RR: 7 DME: APRIA JIMBO: 01/31/21 Referrals: Shelly Arroyo MD [Primary Care Provider] - Visit Report Forms: Patient Portal/API
[2021-12-07] MEDS: cephALEXin 250 MG CAPSULE 500 MG PO (21:07)
== END 2021-12-07 21:51 | disposition home or self-care (01) ==
PROVIDERS: Emergency Provider Emergency Medicine; PCP Family Medicine
DX: Z48.01 Encounter for change or removal of surgical wound dressing (principal)
CPT/HCPCS: 29125

== ENCOUNTER 2021-12-08 02:06 | Emergency (ER) | payer OTHER, SELFPAY ==
[2021-12-08 02:20] VITALS: RESP 16
--- NOTE | 2021-12-08 03:01 | ED.GENADULT ---
HPI - General Adult General Chief complaint: Extremity Injury, Upper Stated complaint: left hand tore bandages off was here earlier Time Seen by Provider: 12/08/21 03:01 History of Present Illness HPI narrative: Patient here for dressing change again. He remove bandages that were placed earlier this evening. No new injury or issues. Related Data Home Medications Medication Instructions Recorded Confirmed hydrochlorothiazide 25 mg tablet 25 mg PO QDAY ##0 08/05/12 12/07/21 adalimumab 10 mg/0.2 mL 10 mg SC ##0 09/13/15 06/06/21 subcutaneous syringe kit (Humira) cyanocobalamin (vitamin B-12) 1,000 mcg PO DAILY 06/02/18 12/07/21 1,000 mcg capsule donepezil 5 mg tablet 5 mg PO DAILY 09/09/20 12/07/21 folic acid 0.8 mg capsule 0.8 mg PO DAILY 09/09/20 12/07/21 latanoprost 0.005 % eye drops drp EYE-BOTH 09/09/20 06/06/21 metoprolol tartrate 50 mg tablet 25 mg PO BID 09/09/20 12/07/21 sertraline 50 mg tablet 50 mg PO DAILY 09/09/20 12/07/21 vitamin E 670 mg (1,000 unit) 2,000 unit PO DAILY 09/09/20 12/07/21 capsule memantine 5 mg tablet 5 mg PO BID 06/06/21 12/07/21 ropinirole 0.5 mg tablet 0.5 mg PO BEDTIME 06/06/21 12/07/21 ResMed AirCurve 10ST 12/06/21 Previous Rx's Medication Instructions Recorded cephalexin 500 mg capsule 500 mg PO Q8H #30 caps 12/07/21 cephalexin 500 mg capsule 500 mg PO TID #30 caps 12/07/21 oxycodone 5 mg tablet 5 mg PO Q6H PRN pain #40 tabs 12/07/21 oxycodone 5 mg tablet 5 mg PO Q6H PRN pain (scale score 12/07/21 7-10) #40 tabs Allergies Allergy/AdvReac Type Severity Reaction Status Date / Time Sulfa (Sulfonamide Allergy Verified 12/07/21 16:21 Antibiotics) Review of Systems Review of Systems Narrative: GENERAL: Denies chills, fatigue, malaise, fever, sweats. MUSCULOSKELETAL: denies muscle or bony pain SKIN: Denies rash, skin lesions NEUROLOGIC: Denies weakness, numbness Patient History Medical History Ankylosing spondylitis lumbar region Cognitive impairment (~2019) Fatigue due to sleep pattern disturbance Glaucoma Insomnia, unspecified Obstructive sleep apnea of adult Paroxysmal atrial fibrillation Restless legs syndrome (RLS) Social History marital status: details: aleksandar Perez, lives in [place] household members: spouse lives independently: Yes caregiver/support person: No housing: house education level: college (BA, [employer]) 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 EXTREMITIES: Examination left hand. Stitches still remain intact. To the fingers. No bleeding no oozing. No dehiscence at this time. Findings are similar to previous visit earlier in the evening. NEURO: At baseline per family SKIN: Warm and dry PSYCH: Not anxious, is cooperative Initial Vital Signs Initial Vital Signs: Vital Signs Respiratory Rate 16 12/08/21 02:20 Course Course Course Narrative: No new issues during course of stay Orders Ordered: ED Orders 12/08/21 03:03 [place] [facility] [place] Super[place] Stat Reevaluation(s) Reevaluation #1: Reviewed with family to follow up with Dr. Trejo tomorrow/Sunday for plans to prevent dressing removal Consultations Consultation #1: Spoke with Dr. Trejo, orthopedics. Would like family to call her office on Sunday come this week for plans to prevent removal of dressings Time: 03:04 Vital Signs Vital signs: Vital Signs - 8 hr 12/08/21 02:20 Respiratory Rate 16 Medical Decision Making MDM Narrative Medical decision making narrative: Appropriate for discharge home. Patient here for dressing change. No new injuries. Discharge Plan Departure Patient Disposition: Home Clinical Impression: Change or removal of surgical wound dressing Instructions: How to Care for a Surgical Wound Activity Restrictions/Additional Instructions: Call Dr. Trejo office in the morning for office appointment to redress hand for protection. Continue home medications and antibiotics. Return if worse if any questions or concerns Prescriptions: No Action cyanocobalamin (vitamin B-12) 1,000 mcg capsule 1,000 mcg PO DAILY metoprolol tartrate 50 mg tablet 25 mg PO BID hydrochlorothiazide 25 MG tablet 25 mg PO QDAY Qty: 0 Humira 10 MG/0.2 ML syringe kit 10 mg SC Qty: 0 cephalexin 500 mg capsule 500 mg PO Q8H Qty: 30 0RF oxycodone 5 mg tablet 5 mg PO Q6H PRN (Reason: pain (scale score 7-10)) Qty: 40 0RF cephalexin 500 mg capsule 500 mg PO TID Qty: 30 0RF oxycodone 5 mg tablet 5 mg PO Q6H PRN (Reason: pain) Qty: 40 0RF folic acid 0.8 mg capsule 0.8 mg PO DAILY latanoprost 0.005 % drops EYE-BOTH donepezil 5 mg tablet 5 mg PO DAILY sertraline 50 mg tablet 50 mg PO DAILY vitamin E 1,000 unit capsule 2,000 unit PO DAILY memantine 5 mg tablet 5 mg PO BID ropinirole 0.5 mg tablet 0.5 mg PO BEDTIME Rx Instructions: take 3 tablet by mouth every evening, administer 1-3 hours before bedtime (DME) ResMed AirCurve 10ST 0 .Route .MEDSUPPLY Label Comments: [facility] IPAP: 19 EPAP: 14 RR: 7 DME: APRIA JIMBO: 01/31/21 Referrals: Shelly Arroyo MD [Primary Care Provider] - Ami Trejo MD [Physician] - Visit Report Forms: Patient Portal/API
== END 2021-12-08 04:03 | disposition home or self-care (01) ==
PROVIDERS: Emergency Provider Emergency Medicine; PCP Family Medicine
DX: Z48.01 Encounter for change or removal of surgical wound dressing (principal); S68.11 Complete traumatic metacarpophalangeal amputation of other and unspecified finger
CPT/HCPCS: 29125; 99283

== ENCOUNTER 2022-12-13 22:19 | Emergency (ER) | payer OTHER, SELFPAY ==
[2022-12-13] VITALS (8 sets, daily range): BP systolic 149–176; BP diastolic 83–86; PULSE 77–93; RESP 15–23; TEMP 38; O2SAT 92–94; BMI 27.0
--- NOTE | 2022-12-13 22:23 | DI.RAD.S_ITS ---
PROCEDURE: XR CHEST 1V INDICATIONS: SOB TECHNIQUE: One view of the chest was acquired. COMPARISON: [facility], CR, XR CHEST 1V, 04/01/2021, 14:47. FINDINGS: Surgical changes and devices: None. Lungs and pleura: Lungs are clear. No pleural effusions or pneumothorax. Mediastinum: Mediastinal contours appear normal. Heart size is normal. Bones and chest wall: No suspicious bony lesions. Overlying soft tissues appear unremarkable. IMPRESSION: Portable chest within normal limits for age. Dictated by: Nicole Astorga M.D. on 12/13/2022 at 23:21 Approved by: Nicole Astorga M.D. on 12/13/2022 at 23:23
[2022-12-13] MEDS: ALBUTEROL/IPRATROPIUM 3 ML AMPUL INH (22:43)
--- NOTE | 2022-12-13 22:46 | ED.GENADULT ---
HPI - General Adult General Chief complaint: Shortness of Breath/Dyspnea Stated complaint: short of breath, wheezing Time Seen by Provider: 12/13/22 22:22 Source: family Mode of arrival: Wheelchair Limitations: other (Dementia) History of Present Illness HPI narrative: Patient is a 72-year-old male. Has a history of Alzheimer's disease. Is at his baseline neurologic status per his is at bedside. She states for the past couple days they have had ?a cold?. states that this afternoon/this evening the patient had a sudden episode of shaking. She also states he had a difficult time getting up which prompted them to come to the emergency department. It is difficult to get any sort of history from the patient. The patient's admits that it is difficult to get any information from him. Patient states he is not having any chest pain. No shortness of breath. He denies any other joint pain. There have been no reported fevers. Related Data Home Medications Medication Instructions Recorded Confirmed hydrochlorothiazide 25 mg tablet 25 mg PO QDAY ##0 08/05/12 12/07/21 adalimumab 10 mg/0.2 mL 10 mg SC ##0 09/13/15 06/06/21 subcutaneous syringe kit (Humira) cyanocobalamin (vitamin B-12) 1,000 mcg PO DAILY 06/02/18 12/07/21 1,000 mcg capsule donepezil 5 mg tablet 5 mg PO DAILY 09/09/20 12/07/21 folic acid 0.8 mg capsule 0.8 mg PO DAILY 09/09/20 12/07/21 latanoprost 0.005 % eye drops drp EYE-BOTH 09/09/20 06/06/21 metoprolol tartrate 50 mg tablet 25 mg PO BID 09/09/20 12/07/21 sertraline 50 mg tablet 50 mg PO DAILY 09/09/20 12/07/21 vitamin E 670 mg (1,000 unit) 2,000 unit PO DAILY 09/09/20 12/07/21 capsule memantine 5 mg tablet 5 mg PO BID 06/06/21 12/07/21 ropinirole 0.5 mg tablet 0.5 mg PO BEDTIME 06/06/21 12/07/21 ResMed AirCurve 1012/06/21 Previous Rx's Medication Instructions Recorded cephalexin 500 mg capsule 500 mg PO Q8H #30 caps 12/07/21 cephalexin 500 mg capsule 500 mg PO TID #30 caps 12/07/21 oxycodone 5 mg tablet 5 mg PO Q6H PRN pain #40 tabs 12/07/21 oxycodone 5 mg tablet 5 mg PO Q6H PRN pain (scale score 12/07/21 7-10) #40 tabs Allergies Allergy/AdvReac Type Severity Reaction Status Date / Time Sulfa (Sulfonamide Allergy Verified 12/07/21 16:21 Antibiotics) Review of Systems Review of Systems ROS Unobtainable: Unobtainable due to mental condition Patient History Medical History Glaucoma Cognitive impairment (~2019) Paroxysmal atrial fibrillation Ankylosing spondylitis lumbar region Obstructive sleep apnea of adult Fatigue due to sleep pattern disturbance Insomnia, unspecified Restless legs syndrome (RLS) Social History marital status: details: aleksandar Perez, lives in [place] household members: spouse lives independently: Yes caregiver/support person: No housing: house education level: college (BA, [employer]) Previous occupational history: Taught IA in high schools Smoking Status: Former smoker alcohol intake: current substance use type: does not use Smoking Status: Former smoker Substance Use Type: does not use Exam Initial Vital Signs Initial Vital Signs: Vital Signs Pulse Rate 86 12/13/22 22:25 Pulse Oximetry 94 12/13/22 22:25 Const General: cooperative, comfortable and No ill appearing HENMT Head: normal to inspection and normocephalic Resp Effort & Inspection: tachypneic Auscultation: rhonchi Cardio Rate: regular rate Rhythm: regular rhythm GI Inspection: non-distended Palpation: soft and No firm Neuro Other: Moves all 4 extremities. Alert to person and place but does not know the year. This is baseline per his who is at bedside Extrem Other: No gross deformity Course Orders Ordered: ED Orders 12/13/22 22:23 XR chest 1V Stat EKG-12 Lead Stat RT Consult Eval and Treat Now 12/13/22 22:29 Covid-19 + FLU A/B + RSV - PCR Stat 12/13/22 22:30 Complete Blood Count AUTO DIFF Stat Comprehensive Metabolic Panel Stat Lactate (Lactic Acid) Stat Lipase Stat NT-proBNP (BNP-Adult 18+) Stat Procalcitonin Stat Troponin & CK Cardiac Panel Stat Acetaminophen (Ofirmev) 1,000 mg in 100 mls @ 400 mls/hr IV NOW ONE Stop: 12/13/22 23:43 Last Admin: 12/13/22 23:33 Dose: 400 mls/hr Discontinued Medications Albuterol/Ipratropium (Albuterol/Ipratropium 3 Ml Ampul) 3 ml INH NOW ONE Stop: 12/13/22 22:41 Last Admin: 12/13/22 22:43 Dose: 3 ml Documented By: JACKELINE Vital Signs Vital signs: Vital Signs - 8 hr 12/13/22 22:25 12/13/22 22:28 12/13/22 22:29 Temperature 100.4 F H Pulse Rate 86 83 93 H Respiratory Rate 23 Blood Pressure 176/86 H Pulse Oximetry 94 93 94 Oxygen Delivery Method Room Air 12/13/22 22:30 12/13/22 22:43 12/13/22 23:00 Temperature Pulse Rate 87 79 Respiratory Rate 15 16 Blood Pressure 172/84 H Pulse Oximetry 92 93 Oxygen Delivery Method Room Air 12/13/22 23:00 12/13/22 23:30 12/13/22 23:31 Temperature Pulse Rate 79 77 Respiratory Rate 19 20 Blood Pressure 149/83 H Pulse Oximetry 94 93 Oxygen Delivery Method Room Air 12/13/22 23:31 Temperature Pulse Rate 78 Respiratory Rate 21 Blood Pressure Pulse Oximetry 92 Oxygen Delivery Method Room Air Medical Decision Making Lab Data Lab results reviewed: Yes I reviewed the patient's lab results. 12/13/22 22:30 12/13/22 22:30 Labs: Lab Results 12/13/22 12/13/22 Range/Units 22:29 22:30 WBC 11.1 H (4.5-11.0) X10^3/uL RBC 4.95 (4.5-5.9) X10^6/uL Hgb 15.7 (13.5-17.5) g/dL Hct 45.1 (41-53) % MCV 91.0 (80-100) fL MCH 31.7 (26-34) PG MCHC 34.9 (30-36) % RDW 13.4 (11.6-14.8) % Plt Count 178 (150-400) X10^3/uL Neut % (Auto) 80.9 H (50-75) % Lymph % (Auto) 7.9 L (25-40) % [place] % (Auto) 8.9 (3-14) % Eos % (Auto) 0.8 L (2-4) % Baso % (Auto) 1.5 (0-2) % Neut # (Auto) 9000 H (4422-1294) /uL Lymph # (Auto) 900 L (4857-4165) /uL [place] # (Auto) 1000 H (0-900) /uL Eos # (Auto) 100 (0-450) /uL Baso # (Auto) 200 H (0-100) /uL Sodium 135 L (137-145) mmol/L Potassium 3.8 (3.4-5.1) mmol/L Chloride 98 (98-107) mmol/L Carbon Dioxide 28 (22-32) mmol/L BUN 21 H (9-20) mg/dL Creatinine 0.91 (0.66-1.25) mg/dL Estimated GFR > 60 (>60) mL/min BUN/Creatinine Ratio 23.1 H (6-22) Glucose 123 H (80-110) mg/dL Lactate 1.1 (0.7-2.1) mmol/L Calcium 9.8 (8.4-10.2) mg/dL Total Bilirubin 0.6 (0.2-1.3) mg/dL AST 33 (17-59) IU/L ALT 32 (<50) IU/L Alkaline Phosphatase 114 (38-126) U/L Total Creatine Kinase 164 (55-170) U/L Troponin I 0.014 (0.01-0.034) ng/mL NT-Pro-B Natriuret Pep 511 H (<125) pg/mL Total Protein 8.1 (6.3-8.2) g/dL Albumin 4.4 (3.5-5.0) g/dL Globulin 3.7 (1.7-4.1) g/dL Albumin/Globulin Ratio 1.2 (1.0-2.8) Lipase 256 (23-300) U/L Procalcitonin 0.06 (<0.5) ng/mL SARS-CoV-2 (PCR) Negative (Negative) Influenza A (RT-PCR) Flu a negative (NEGATIVE) Influenza B (RT-PCR) Flu b negative (NEGATIVE) RSV (PCR) Positive A (Negative) Imaging Data Chest x-ray: Radiologist's Impression: PROCEDURE: XR CHEST 1V INDICATIONS: SOB TECHNIQUE: One view of the chest was acquired. COMPARISON: [facility], CR, XR CHEST 1V, 04/01/2021, 14:47. FINDINGS: Surgical changes and devices: None. Lungs and pleura: Lungs are clear. No pleural effusions or pneumothorax. Mediastinum: Mediastinal contours appear normal. Heart size is normal. Bones and chest wall: No suspicious bony lesions. Overlying soft tissues appear unremarkable. IMPRESSION: Portable chest within normal limits for age. ECG Data Attestation: I personally reviewed and interpreted this ECG as follows: Interpretation: Sinus rhythm Ventricular rate is 78 Normal axis Normal QRS Normal QTC No ST T wave changes MDM Narrative Medical decision making narrative: Patient is slightly tachypneic but not hypoxic. Chest x-ray is unremarkable. EKGs unremarkable. He is positive for RSV which is not surprising based on his clinical presentation today. Procalcitonin is negative. No indication for admission to hospital. I discussed all this with the mother. I do suspect that the shaking with the patient has was most likely chills. He did have a slight fever here. Patient's states he does take pills by mouth but sometimes chokes on medications. He was given an IV dose of Tylenol here. Will discharge patient home. was given return precautions. She expressed understanding and agreement. Discharge Plan Departure Patient Disposition: Home Clinical Impression: Respiratory syncytial virus (RSV) Instructions: DI for Respiratory Syncytial Virus -- Adults Activity Restrictions/Additional Instructions: Jacoby can continue to take all of his medications as directed. He can take 2 regular strength Tylenol or 1 extra-strength Tylenol every 4-6 hours as needed for fevers. You may want to consider scheduling this for the next 24-48 hours. Return to the emergency department for new or worsening symptoms. Prescriptions: No Action cyanocobalamin (vitamin B-12) 1,000 mcg capsule 1,000 mcg PO DAILY metoprolol tartrate 50 mg tablet 25 mg PO BID hydrochlorothiazide 25 MG tablet 25 mg PO QDAY Qty: 0 Humira 10 MG/0.2 ML syringe kit 10 mg SC Qty: 0 cephalexin 500 mg capsule 500 mg PO Q8H Qty: 30 0RF oxycodone 5 mg tablet 5 mg PO Q6H PRN (Reason: pain (scale score 7-10)) Qty: 40 0RF cephalexin 500 mg capsule 500 mg PO TID Qty: 30 0RF oxycodone 5 mg tablet 5 mg PO Q6H PRN (Reason: pain) Qty: 40 0RF folic acid 0.8 mg capsule 0.8 mg PO DAILY latanoprost 0.005 % drops EYE-BOTH donepezil 5 mg tablet 5 mg PO DAILY sertraline 50 mg tablet 50 mg PO DAILY vitamin E 1,000 unit capsule 2,000 unit PO DAILY memantine 5 mg tablet 5 mg PO BID ropinirole 0.5 mg tablet 0.5 mg PO BEDTIME Rx Instructions: take 3 tablet by mouth every evening, administer 1-3 hours before bedtime (DME) ResMed AirCurve 10ST 0 .Route .MEDSUPPLY Patient Comments: BIPAP IPAP: 19 EPAP: 14 RR: 7 DME: APRIA JIMBO: 01/31/21 Referrals: Shelly Arroyo MD [Primary Care Provider] - Stand Alone Forms: Patient Portal/API
[2022-12-13 22:48] LABS: Add Manual Diff / Slide Review NO; Basophils Absolute Auto 200 /uL (0-100); Basophils Percent Auto 1.5 % (0-2); Eosinophils Absolute Auto 100 /uL (0-450); Eosinophils Percent Auto 0.8 % (2-4); Hematocrit 45.1 % (41-53); Hemoglobin 15.7 g/dL (13.5-17.5); Lymphocytes Absolute Auto 900 /uL (1100-4500); Lymphocytes Percent Auto 7.9 % (25-40); Mean Corpuscular HGB Conc 34.9 % (30-36); Mean Corpuscular Hemoglobin 31.7 PG (26-34); Monocytes Absolute Auto 1000 /uL (0-900); Monocytes Percent Auto 8.9 % (3-14); Neutrophils Absolute Auto 9000 /uL (1500-7000); Neutrophils Percent Auto 80.9 % (50-75); Platelet Count 178 X10^3/uL (150-400); Red Blood Cell Count 4.95 X10^6/uL (4.5-5.9); Red Cell Distribution Width 13.4 % (11.6-14.8); White Blood Cell Count 11.1 X10^3/uL (4.5-11.0)
[2022-12-13 22:56] LABS: Alanine Aminotransferase 32 IU/L (<50); Albumin 4.4 g/dL (3.5-5.0); Albumin Globulin Ratio 1.2 (1.0-2.8); Alkaline Phosphatase 114 U/L (38-126); Aspartate Aminotransferase 33 IU/L (17-59); BUN Creatinine Ratio 23.1 (6-22); Bilirubin Total 0.6 mg/dL (0.2-1.3); Blood Urea Nitrogen 21 mg/dL (9-20); Calcium 9.8 mg/dL (8.4-10.2); Carbon Dioxide 28 mmol/L (22-32); Chloride 98 mmol/L (98-107); Creatine Kinase 164 U/L (55-170); Estimated Glomerular Filt Rate > 60 mL/min (>60); Globulin 3.7 g/dL (1.7-4.1); Glucose 123 mg/dL (80-110); HEMOLYSIS 19 (0-50); Lactate (Lactic Acid) 1.1 mmol/L (0.7-2.1); Lipase 256 U/L (23-300); Potassium 3.8 mmol/L (3.4-5.1); Sodium 135 mmol/L (137-145); Total Protein 8.1 g/dL (6.3-8.2)
[2022-12-13 23:08] LABS: NT-proBNP (BNP-Adult 18+) 511 pg/mL (<125); Troponin I 0.014 ng/mL (0.01-0.034)
[2022-12-13 23:10] LABS: Influenza A - CEPHEID Flu A NEGATIVE (NEGATIVE); Influenza B - CEPHEID Flu B NEGATIVE (NEGATIVE); Respiratory Syncytial Virus POSITIVE (Negative)
[2022-12-13 23:11] LABS: COVID-19 CEPHEID 4-PLEX PCR Negative (Negative)
[2022-12-13 23:13] LABS: Procalcitonin 0.06 ng/mL (<0.5)
[2022-12-13] MEDS: ACETAMINOPHEN IV 1,000 MG/100 ML VIAL 400 MG IV (23:33)
[2022-12-14 00:01] VITALS: TEMP 37.6
== END 2022-12-14 00:02 | disposition home or self-care (01) ==
PROVIDERS: Emergency Provider Emergency Medicine; PCP Family Medicine
DX: B33.8 Other specified viral diseases (principal); B97.4 Respiratory syncytial virus as the cause of diseases classified elsewhere; Z20.822 Contact with and (suspected) exposure to COVID-19
CPT/HCPCS: 0241U; 36415; 71045; 80053; 82550; 83605; 83690; 83880; 84145; 84484; 85025; 93005; 94640; 96365; 99284; J0131